=== PATIENT | female | born 1950 | race Caucasian/White ===

== ENCOUNTER 2023-11-12 01:39 | Emergency (ER) | payer SELFPAY ==
[2023-11-12] VITALS (11 sets, daily range): BP systolic 149–206; BP diastolic 72–98; PULSE 75–89; RESP 16–20; TEMP 36.2; O2SAT 93–96; BMI 29.8
--- NOTE | 2023-11-12 01:49 | EKG_ITS ---
[place] [id number] [place] [id number] Test Date: 2023-11-12 Pat Name: Tiny Acharya Department: [facility] Room: Gender: Female Title Insurance Sales Representative: SOFIA : 1950 Requested By: Order Number: [id number] Reading MD: Ric Arrieta MD Measurements Intervals [place] Rate: 76 P: 59 AR: 170 QRS: -5 QRSD: 96 T: 19 QT: 384 QTc: 432 Interpretive Statements Normal sinus rhythm Electronically Signed On 11-12-2023 7:26:11 PDT by Ric Arrieta MD
--- NOTE | 2023-11-12 01:49 | DI.CT.S_ITS ---
PROCEDURE: CT ABDOMEN PELVIS W CON INDICATIONS: RUQ/MIDEPIGASTRIC ABD PAIN TECHNIQUE: After the administration of intravenous contrast, axial sections acquired from the lung bases to the pubic symphysis. Coronal and sagittal reformats were performed. For radiation dose reduction, the following was used: automated exposure control, adjustment of mA and/or kV according to patient size. COMPARISON: None FINDINGS: Image quality: Diagnostic. Lower Chest: Mild hiatal hernia. ABDOMEN: Liver: Ill-defined hypodensity, segment 4 of the left lobe of the liver measuring approximately 1.9 cm. Gallbladder: Gallbladder is distended with question of mild wall thickening. There is a probable noncalcified gallstone. Biliary ducts: Mildly prominent, within normal limits for patient age. Pancreas: No ductal dilation. Spleen: Size is within normal limits. Adrenal Glands: No adrenal nodules. Kidneys and Ureters: No hydronephrosis. No solid mass. No complex renal cystic lesion which requires follow up. Stomach and Bowel: Mild hiatal hernia. Question peristalsis versus wall thickening present in the body of the stomach. Reference axial image 16 of series 2 and coronal image 30 of series 3. Normal colonic caliber, without significant wall thickening. Mild diverticulosis. Peritoneum: No abnormal intraperitoneal fluid. No free air. Ventral Wall: No significant ventral hernia. Abdominal Nodes: No retroperitoneal or mesenteric adenopathy by size criteria. Vessels: Aorta and inferior vena cava are normal in size. PELVIS: Pelvic Organs: Uterus is surgically absent. No suspicious adnexal masses.. Bladder: No bladder wall thickening, accounting for underdistention. Pelvic Nodes: No enlarged lymph nodes. Miscellaneous: No inguinal hernias are seen. Bones: No aggressive osseous abnormality. Lumbar degenerative change. Not IMPRESSION: 1. Probable noncalcified gallstone, gallbladder distention, question wall thickening. 2. Indeterminate left lobe liver lesion measuring 1.9 cm. 3. Hiatal hernia. 4. Question focal thickening of the wall of the stomach versus peristalsis. 5. Mild diverticulosis. Comment: Recommend right upper quadrant ultrasound for further evaluation of the gallbladder. Recommend GI consultation for further evaluation of the stomach. Consider nonemergent liver MRI for further evaluation of the left lobe liver lesion. Comment: Final report is concordant with preliminary interpretation provided by [facility]. Dictated by: Ankit Abdi M.D. on 11/12/2023 at 8:23 Approved by: Ankit Abdi M.D. on 11/12/2023 at 8:33
--- NOTE | 2023-11-12 01:50 | ED.ABDPAIN ---
HPI - Abdominal Pain General Chief Complaint: Abdominal Pain Stated Complaint: vomiting, abd pain Time Seen by Provider: 11/12/23 01:41 History of Present Illness HPI narrative: 73-year-old female with history of hyperlipidemia presents by private vehicle from home for several hours of nausea, vomiting, right-sided abdominal pain. Symptoms began around 9 p.m. prior to going to bed. Patient was able to fall asleep for an hour but subsequently woke back up due to pain. Vomited x1, currently nauseous. Pain is constant, nothing seems to make it better or worse. Never felt this before. Denies hx of abdominal surgeries. Related Data Previous Rx's Medication Instructions Recorded amoxicillin 875 mg-potassium 1 tab PO Q12H #20 tabs 11/12/23 clavulanate 125 mg tablet hydrocodone 5 mg-acetaminophen 325 1 tab PO Q8H PRN pain #10 tabs 11/12/23 mg tablet ondansetron 4 mg disintegrating 4 mg PO Q8H PRN nausea and 11/12/23 tablet vomiting #30 tabs Allergies Allergy/AdvReac Type Severity Reaction Status Date / Time No Known Drug Allergies Allergy Verified 11/12/23 02:04 Exam Initial Vital Signs Initial Vital Signs: Vital Signs Temperature 97.2 F L 11/12/23 01:47 Pulse Rate 75 11/12/23 01:47 Respiratory Rate 20 11/12/23 01:47 Blood Pressure 206/98 H 11/12/23 01:47 Pulse Oximetry 95 11/12/23 01:47 Oxygen Delivery Method Room Air 11/12/23 01:47 Const: Awake, alert, uncomfortable, nontoxic appearing Cardiac: regular rate, regular rhythm RESP: unlabored, clear bilaterally, no wheezing GI: Soft, tender to palpation right upper quadrant and midepigastric regions of abdomen. No rebound, no guarding. Positive lutz's sign MSK: Atraumatic, full range of motion, pulses equal Skin: Warm, Dry, intact, no rashes Neuro: AO x3, CN II-XII grossly intact, moves all extremities Course Orders Ordered: ED Orders 11/12/23 01:49 CT abdomen pelvis w con Stat EKG-12 Lead Stat 11/12/23 01:50 CBC Auto Diff [Complete Blood Count AUTO DIFF] Stat CMP [Comprehensive Metabolic Panel] Stat Lactate (Lactic Acid) Stat Lipase Stat 11/12/23 03:53 US abdomen limited Stat Discontinued Medications Sodium Chloride (Normal Saline 0.9%) 1,000 mls @ 1,000 mls/hr IV BOLUS ONE Stop: 11/12/23 02:48 Last Infusion: 11/12/23 03:38 Dose: Infused Documented By: Admin: 11/12/23 01:59 Dose: 1,000 mls/hr Documented By: SRI Ketorolac Tromethamine (Ketorolac 30 Mg/Ml Vial) 15 mg IV NOW ONE Stop: 11/12/23 04:28 Last Admin: 11/12/23 04:32 Dose: 15 mg Documented By: SRI Morphine Sulfate (Morphine 4 Mg/Ml Inj) 4 mg IV NOW ONE Stop: 11/12/23 01:50 Last Admin: 11/12/23 01:59 Dose: 4 mg Documented By: SRI Ondansetron HCl (Ondansetron 4 Mg/2 Ml Inj) 4 mg IV NOW ONE Stop: 11/12/23 01:50 Last Admin: 11/12/23 01:59 Dose: 4 mg Documented By: SRI Ondansetron HCl (Ondansetron 4 Mg/2 Ml Inj) 4 mg IV NOW ONE Stop: 11/12/23 04:28 Last Admin: 11/12/23 04:32 Dose: 4 mg Documented By: SRI Vital Signs Vital signs: Vital Signs - 8 hr 11/12/23 01:47 11/12/23 02:04 11/12/23 02:31 Temperature 97.2 F L Pulse Rate 75 77 87 Respiratory Rate 20 Blood Pressure 206/98 H Pulse Oximetry 95 93 93 Oxygen Delivery Method Room Air Oxygen Flow Rate 11/12/23 02:42 11/12/23 03:03 11/12/23 03:04 Temperature Pulse Rate 89 82 Respiratory Rate Blood Pressure Pulse Oximetry 94 95 94 Oxygen Delivery Method Nasal Cannula Oxygen Flow Rate 2 11/12/23 03:04 11/12/23 03:30 11/12/23 03:30 Temperature Pulse Rate 85 Respiratory Rate 18 Blood Pressure 186/82 H 194/83 H Pulse Oximetry 93 Oxygen Delivery Method Room Air Oxygen Flow Rate 11/12/23 04:00 11/12/23 04:00 11/12/23 04:30 Temperature Pulse Rate 75 82 Respiratory Rate 17 Blood Pressure 165/73 H Pulse Oximetry 93 96 Oxygen Delivery Method Room Air Oxygen Flow Rate 11/12/23 04:30 11/12/23 05:30 11/12/23 06:33 Temperature Pulse Rate 83 80 Respiratory Rate 16 18 Blood Pressure 170/76 H 149/72 H Pulse Oximetry 96 94 Oxygen Delivery Method Oxygen Flow Rate MDM - Abdominal Pain Lab Data 11/12/23 01:50 11/12/23 01:50 Labs: Lab Results 11/12/23 Range/Units 01:50 WBC 7.3 (4.5-11.0) X10^3/uL RBC 4.81 (4.0-5.2) X10^6/uL Hgb 15.3 (12.0-16.0) g/dL Hct 44.9 (36-46) % MCV 93.4 (80-100) fL MCH 31.9 (26-34) PG MCHC 34.1 (30-36) % RDW 13.6 (11.6-14.8) % Plt Count 221 (150-400) X10^3/uL Neut % (Auto) 59.0 (50-75) % Lymph % (Auto) 30.5 (25-40) % [place] % (Auto) 7.3 (3-14) % Eos % (Auto) 2.3 (2-4) % Baso % (Auto) 0.9 (0-2) % Neut # (Auto) 4300 (9380-1508) /uL Lymph # (Auto) 2200 (9871-3298) /uL [place] # (Auto) 500 (0-900) /uL Eos # (Auto) 200 (0-450) /uL Baso # (Auto) 100 (0-100) /uL Sodium 137 (137-145) mmol/L Potassium 3.4 (3.4-5.1) mmol/L Chloride 104 (98-107) mmol/L Carbon Dioxide 26 (22-32) mmol/L BUN 15 (7-17) mg/dL Creatinine 0.92 (0.52-1.04) mg/dL Estimated GFR > 60 (>60) mL/min BUN/Creatinine Ratio 16.3 (6-22) Glucose 125 H (80-110) mg/dL Lactate 1.4 (0.7-2.1) mmol/L Calcium 9.3 (8.4-10.2) mg/dL Total Bilirubin 0.6 (0.2-1.3) mg/dL AST 26 (14-36) IU/L ALT 20 (<35) IU/L Alkaline Phosphatase 94 (38-126) U/L Total Protein 7.4 (6.3-8.2) g/dL Albumin 4.1 (3.5-5.0) g/dL Globulin 3.3 (1.7-4.1) g/dL Albumin/Globulin Ratio 1.2 (1.0-2.8) Lipase 49 (23-300) U/L Point of care testing: Urine Dip Bedside Urine Glucose Negative Bedside Urine Bilirubin - Negative Bedside Urine Ketone - Negative Urine Specific [place] 1.005 Bedside Urine Occult Blood - Negative Bedside Urine pH 8.0 Bedside Urine Protein - Negative Bedside Urine Urobilinogen - Negative Bedside Urine Nitrite - Negative Bedside Urine Leukocytes - Negative Esterase MDM Narrative Medical decision making narrative: Right upper quadrant pain with nausea and vomiting. No peritoneal signs, positive Lutz's sign. Laboratory work, CT imaging, pain medications ordered. Laboratory work shows no acute abnormalities. No leukocytosis, normal liver enzymes, no elevation in lipase. Pain initially improved with morphine, however has begun to return. Toradol added. CT imaging shows distended gallbladder but no secondary signs of cholecystitis. Ultrasound ordered for additional assessment. Ultrasound shows 1.2 cm stone with gallbladder distention, positive sonographic Lutz's sign. No secondary signs of cholecystitis including wall thickening or pericholecystic fluid. Case discussed with Dr. Cardozo of on-call General surgery, who stated that if patient was having pain then he could admit the patient for cholecystectomy. Lab and imaging findings as well as General surgery suggestions discussed with the patient and has been at bedside. They state that they are here on vacation from [facility] and prefer to go home for their care. They state that they will rest today in their trailer and then go home for treatment of the patient's condition. Pain medications, nausea medications, empiric antibiotics sent to pharmacy of choice. Disc with images sent with patient to take to follow up appointment. Discharge Plan Departure Patient Disposition: Home Clinical Impression: Gallstone (impacted) Instructions: DI for Gallstones Activity Restrictions/Additional Instructions: Your laboratory work today was normal. There was no elevation in your white blood cell count and your liver enzymes were normal. You do have a large gallstone that seems to be stuck in your gallbladder, but you were missing other signs of acute infection. Our general surgeon said that they could remove your gallbladder. Since you are deciding to go home to see if this procedure can be done I recommend the following: antibiotics to prevent infection, pain medications, and anti-nausea medications. Please follow up as soon as possible with your doctors back in [place]. Prescriptions: New ondansetron 4 mg tablet,disintegrating 4 mg PO Q8H PRN (Reason: nausea and vomiting) Qty: 30 0RF amoxicillin-pot clavulanate 875-125 mg tablet 1 tab PO Q12H Qty: 20 0RF hydrocodone-acetaminophen 5-325 mg tablet 1 tab PO Q8H PRN (Reason: pain) Qty: 10 0RF Stand Alone Forms: Patient Portal/API
[2023-11-12] MEDS: SODIUM CHLORIDE 0.9% 1,000 ML 1000 ML IV (01:59)
[2023-11-12] MEDS: ONDANSETRON 4 MG/2 ML INJ IV ×2 (01:59→04:32)
[2023-11-12] MEDS: MORPHINE 4 MG/ML INJ IV (01:59)
[2023-11-12 02:07] LABS: Add Manual Diff / Slide Review NO; Basophils Absolute Auto 100 /uL (0-100); Basophils Percent Auto 0.9 % (0-2); Eosinophils Absolute Auto 200 /uL (0-450); Eosinophils Percent Auto 2.3 % (2-4); Hematocrit 44.9 % (36-46); Hemoglobin 15.3 g/dL (12.0-16.0); Lymphocytes Absolute Auto 2200 /uL (1100-4500); Lymphocytes Percent Auto 30.5 % (25-40); Mean Corpuscular HGB Conc 34.1 % (30-36); Mean Corpuscular Hemoglobin 31.9 PG (26-34); Mean Corpuscular Volume 93.4 fL (80-100); Monocytes Absolute Auto 500 /uL (0-900); Monocytes Percent Auto 7.3 % (3-14); Neutrophils Absolute Auto 4300 /uL (1500-7000); Platelet Count 221 X10^3/uL (150-400); Red Blood Cell Count 4.81 X10^6/uL (4.0-5.2); Red Cell Distribution Width 13.6 % (11.6-14.8); White Blood Cell Count 7.3 X10^3/uL (4.5-11.0)
[2023-11-12 02:10] LABS: Alanine Aminotransferase 20 IU/L (<35); Albumin 4.1 g/dL (3.5-5.0); Albumin Globulin Ratio 1.2 (1.0-2.8); Alkaline Phosphatase 94 U/L (38-126); Aspartate Aminotransferase 26 IU/L (14-36); BUN Creatinine Ratio 16.3 (6-22); Bilirubin Total 0.6 mg/dL (0.2-1.3); Blood Urea Nitrogen 15 mg/dL (7-17); Calcium 9.3 mg/dL (8.4-10.2); Carbon Dioxide 26 mmol/L (22-32); Chloride 104 mmol/L (98-107); Estimated Glomerular Filt Rate > 60 mL/min (>60); Globulin 3.3 g/dL (1.7-4.1); Glucose 125 mg/dL (80-110); HEMOLYSIS 16 (0-50); Lactate (Lactic Acid) 1.4 mmol/L (0.7-2.1); Lipase 49 U/L (23-300); Potassium 3.4 mmol/L (3.4-5.1); Sodium 137 mmol/L (137-145); Total Protein 7.4 g/dL (6.3-8.2)
--- NOTE | 2023-11-12 03:53 | DI.US.S_ITS ---
PROCEDURE: US ABDOMEN LIMITED INDICATIONS: RUQ PAIN, POSS CHOLECYSTITIS VS CHOLEDOCHOLITHIASIS TECHNIQUE: Real-time scanning was performed of the abdominal and retroperitoneal organs, with image documentation. COMPARISON: [facility], CT, CT ABDOMEN PELVIS W CON, 11/12/2023, 2:22. FINDINGS: Liver: Liver is normal in size and increased in echotexture. Gallbladder: There is a 1.2 cm gallbladder neck stone. Gallbladder is distended. There is no significant gallbladder wall thickening. Pain is noted on examination. Biliary ducts: Intrahepatic bile ducts are non-dilated. Extrahepatic bile duct caliber measures 7.6 mm. Normal is 6-7 mm or less in diameter, or 10 mm or less post-cholecystectomy. Pancreas: Not visualized secondary to overlying bowel gas. Miscellaneous: No free abdominal fluid. IMPRESSION: Possible acute cholecystitis. Distended gallbladder with gallbladder neck stone and pain on examination. Recommend clinical correlation. Consider HIDA study. Top normal common duct size for patient age. Comment: Final report is concordant with preliminary interpretation provided by [facility]. Dictated by: Ankit Abdi M.D. on 11/12/2023 at 9:17 Approved by: Ankit Abdi M.D. on 11/12/2023 at 9:19
[2023-11-12] MEDS: KETOROLAC 30 MG/ML VIAL 15 MG IV (04:32)
== END 2023-11-12 06:45 | disposition home or self-care (01) ==
PROVIDERS: Emergency Provider Emergency Medicine
DX: K80.20 Calculus of gallbladder without cholecystitis without obstruction (principal); R11.2 Nausea with vomiting, unspecified
CPT/HCPCS: 36415; 74177; 76705; 80053; 81003; 83605; 83690; 85025; 93005; 93010; 96361; 96374; 96375; 96376; 99284; J1885; J2270; J2405; Q9967